=== PATIENT | male | born 1980 | race Caucasian/White ===

== ENCOUNTER 2024-10-01 13:15 | Emergency (ER) | payer OTHER, SELFPAY ==
[2024-10-01] MEDS ORDERED: BENZONATATE 100 MG CAP PO ONE (13:48)
[2024-10-01 14:57] LABS: SARS-CoV-2 Antigen CONTROL BLUE LINE VIS/BG OK; SARS-CoV-2 Antigen Rapid Res Negative (Negative)
--- NOTE | 2024-10-01 15:03 | ER ---
Nurse's Notes [facility] Name: Adam Lucas Age: 44 yrs Sex: Male : 1980 Arrival Date: 10/01/2024 Time: 13:15 Bed 12 Private MD: Diagnosis: Influenza due to identified novel influenza A virus Presentation: 10/01 13:44 Chief complaint: Patient states: cough, congestion, and eye pain onset Tuesday. cm10 Coronavirus screen: Client denies travel out of the [place] in the last 14 days. Ebola Screen: Patient denies travel to an Ebola-affected area in the 21 days before illness onset. Initial Sepsis Screen: Does the patient meet any 2 criteria? HR > 90 bpm. Does the patient have a suspected source of infection? No. Patient's initial sepsis screen is negative. Risk Assessment: Do you want to hurt yourself or someone else? Patient reports no desire to harm self or others. Onset of symptoms was September 29, 2024. 13:44 Method Of Arrival: Ambulatory cm10 13:44 Acuity: MARVEL 4 cm10 Triage Assessment: 13:45 General: Appears in no apparent distress. comfortable, Behavior is calm, cooperative, cm10 appropriate for age. Pain: Complains of pain in right eye, left eye and chest Pain currently is 5 out of 10 on a pain scale. Neuro: No deficits noted. Level of Consciousness is awake, alert, obeys commands, Oriented to person, place, time, situation, Appropriate for age. Respiratory: No deficits noted. Airway is patent Respiratory effort is even, unlabored, Respiratory pattern is regular, symmetrical. Historical: - Allergies: 13:45 No Known Allergies; cm10 - Home Meds: 13:45 None [Active]; cm10 - PMHx: 13:45 None; cm10 - PSHx: 13:45 None; cm10 - Immunization history:: Adult Immunizations unknown. - Infectious Disease History:: Denies. - Social history:: Smoking status: Reported history of juuling and/or vaping. Screenin:24 Abuse screen: Denies threats or abuse. Denies injuries from another. Nutritional ss screening: No deficits noted. Tuberculosis screening: Never had TB. 15:15 [facility] ED Fall Risk Assessment (Adult) History of falling in the last 3 months, ld1 including since admission No falls in past 3 months (0 pts) Confusion or Disorientation No (0 pts) Intoxicated or Sedated No (0 pts) Impaired Gait No (0 pts) Mobility Assist Device Used No (0 pt) Altered Elimination Score/Fall Risk Level 0 - 2 = Low Risk Oriented to surroundings, Maintained a safe environment, Educated pt \T\ family on fall prevention, incl call for assistance when getting out of bed, Assessed \T\ reinforced patient's understanding of fall precautions, Provided non-skid footwear, Hourly rounding (assess needs \T\ fall precautionary measures) done, Used ambulatory aids as needed (educated on \T\ assisted with), Used gait belt as appropriate. Assessment: 14:24 General: Appears in no apparent distress. comfortable, Behavior is calm, cooperative. ss Neuro: Level of Consciousness is awake, alert, obeys commands, Oriented to person, place, time, situation. Respiratory: Airway is patent Respiratory effort is even, unlabored, Respiratory pattern is regular, symmetrical. Respiratory: Reports cough that is. Derm: Skin is pink, warm \T\ dry. normal. Vital Signs: 13:44 BP 126 / 87; Pulse 99; Resp 15; Temp 98.8(O); Pulse Ox 97% on R/A; Weight 90.72 kg; cm10 Height 6 ft. 0 in. ; Pain 6/10; 13:44 Body Mass Index 27.12 (90.72 kg, 182.88 cm) cm10 13:44 Pain Scale: Adult cm10 ED Course: 13:17 Patient arrived in ED. im 13:24 Aakash Allred MD is Attending Physician. ec2 13:45 Triage completed. cm10 13:45 Arm band placed on right wrist. Patient placed in waiting room. cm10 13:55 Strep Sent. cm10 13:55 SARS RAPID Sent. cm10 13:55 Influenza Screen (a \T\ B) Sent. cm10 13:55 COVID swab sent to lab. Flu and/or RSV swab sent to lab. Strep swab sent to lab. cm10 14:24 Patient has correct armband on for positive identification. ss 15:14 Mehreen Gentile, KACEY is Primary Nurse. ld1 15:15 No provider procedures requiring assistance completed. Patient did not have IV access ld1 during this emergency room visit. Administered Medications: 13:46 Not Given (Physician Discretion): Ondansetron Oral Disintegrating Tablet 4 mg PO once cm10 13:54 Drug: Tessalon Perle PO 100 mg PO once Route: PO; cm10 Medication: 14:24 VIS not applicable for this client. ss Outcome: 15:03 Discharge ordered by . ec2 15:15 Transferred ld1 15:15 Condition: stable 15:15 Discharge instructions given to patient, Instructed on discharge instructions, follow up and referral plans. Demonstrated understanding of instructions, follow-up care, medications, Prescriptions given X 1, 15:15 Patient left the ED. ld1 Signatures: Jaylene Valenzuela RN RN Mehreen Gentile RN RN ld1 Casandra Lombardo Clarissa RN RN cm10 Aakash Allred MD MD ec2
--- NOTE | 2024-10-01 15:03 | EDPHYS ---
Physician Documentation [facility] Name: Adam Lucas Age: 44 yrs Sex: Male : 1980 Arrival Date: 10/01/2024 Time: 13:15 Bed 12 Private MD: ED Physician Aakash Allred HPI: 10/01 13:51 This 44 yrs old Male presents to ER via Ambulatory with complaints of Flu ec2 Symptoms. 13:51 Patient arrives today d/t concern for several days of URI s/s. Patient reports that he ec2 has been having cough and cold symptoms as well as body aches. Patient with multiple sick contacts with same symptoms.. Historical: - Allergies: 13:45 No Known Allergies; cm10 - Home Meds: 13:45 None [Active]; cm10 - PMHx: 13:45 None; cm10 - PSHx: 13:45 None; cm10 - Immunization history:: Adult Immunizations unknown. - Infectious Disease History:: Denies. - Social history:: Smoking status: Reported history of juuling and/or vaping. ROS: 13:51 Constitutional: as per hpi ec2 Exam: 13:52 Constitutional: GEN: NAD Head: atraumatic Eyes: EOMI Ears: External ears are ec2 normal. CV: regular rate LUNGS: no respiratory distress ABD: non-distended SKIN: no evidence of rashes MSK: no evidence of trauma Vital Signs: 13:44 BP 126 / 87; Pulse 99; Resp 15; Temp 98.8(O); Pulse Ox 97% on R/A; Weight 90.72 kg; cm10 Height 6 ft. 0 in. ; Pain 6/10; 13:44 Body Mass Index 27.12 (90.72 kg, 182.88 cm) cm10 13:44 Pain Scale: Adult cm10 MDM: 13:43 Medical Screening Exam initiated ec2 13:52 Data reviewed: vital signs, nurses notes. ED course: Patient arrives today with upper ec2 respiratory symptoms. Examination is unrevealing. Obtain viral swabs and treat the patient with Tessalon Perles for his cough and cold symptoms. Suspect viral infection.. 15:02 ED course: Patient is positive for flu. Will treat with symptomatic care. Return ec2 precautions given.. 10/01 13:33 Order name: Strep ec2 10/01 13:32 Order name: Influenza Screen (a \T\ B); Complete Time: 15:02 ec2 10/01 13:32 Order name: SARS RAPID; Complete Time: 15:02 ec2 10/01 15:00 Order name: Throat Culture EDMS Administered Medications: 13:46 Not Given (Physician Discretion): Ondansetron Oral Disintegrating Tablet 4 mg PO once cm10 13:54 Drug: Tessalon Perle PO 100 mg PO once Route: PO; cm10 Disposition Summary: 10/01/24 15:03 Discharge Ordered Notes: Location: Home ec2 Condition: Stable ec2 Diagnosis - Influenza due to identified novel influenza A virus ec2 Followup: ec2 - With: Private Physician - When: - Reason: Re-evaluation by your physician Discharge Instructions: - Discharge Summary Sheet ec2 - Influenza, Adult ec2 Forms: - Medication Reconciliation Form ec2 - Antibiotic Education ec2 - Prescription Opioid Use ec2 - Patient Portal Instructions ec2 - Leadership Thank You Letter ec2 Prescriptions: - Tessalon Perles 100 mg Oral Capsule - take 1 capsule ORAL route every 8 hours As needed; 15 capsule; Refills: 0, ec2 Product Selection Permitted Signatures: Dispatcher [employer] Sigrid Coppola RN RN cm10 Aakash Allred MD MD ec2 Corrections: (The following items were deleted from the chart) 13:33 13:33 Influenza Screen (A \T\ B)+BA.LAB.BRZ ordered. EDMS EDMS 13:33 13:33 SARS-COV-2 Antigen Rapid+I.LAB.BRZ ordered. EDMS EDMS 13:33 13:33 Group A Streptococcus Rapid Sc+BA.LAB.BRZ ordered. EDMS EDMS
[2024-10-01 15:43] VITALS: BP 126/87; TEMP 98.8; O2SAT 97
== END 2024-10-01 15:15 | disposition home or self-care (01) ==
LOC: ER 13:15
DX: J10.1 Influenza due to other identified influenza virus with other respiratory manifestations (principal); Z11.52 Encounter for screening for COVID-19
CPT/HCPCS: 36415; 87070; 87081; 87804; 87811; 99285